=== PATIENT | female | born 1945 | race Caucasian/White ===

== ENCOUNTER → 2018-05-20 | Outpatient (CLI) | payer MEDICARE, BC ==
[~2018-05-20] MED LIST: ALLERGY EYE DRO10 ML BOTHEYES; ALUMAG30SU PO; ASCO500; Aspirin EC325 MG PO; CHOL10002 PO; DEXL60CA3 PO; Daily Multiple1 EACH PO; EZET10 PO; FLAX; IRBE150; LAVAP17G PO; LEVSOD75 PO; LOSA50 PO; LOSARTAN POTASS50 MG PO; METO50 PO; Metoprolol Tart50 MG PO; Norco 5-325 Ta1 EACH PO; PSYL5.85P PO; Pepcid20 MG PO; SUCR1 PO; TURMERIC500 MG; TURMERIC500 MG PO; Toprol Xl50 MG PO; VITAMIN B-122000 MCG; Zofran Odt4 MG SL
== END | disposition home or self-care (01) ==
LOC: LAB EV 16:16 → LAB SHORT 16:16
DX: S50.311A Abrasion of right elbow, initial encounter (principal)
CPT/HCPCS: 87070; 87205

== ENCOUNTER → 2019-01-16 | Outpatient (CLI) | payer MEDICARE, BC | END | disposition home or self-care (01) | LOC: PLD 08:49 → LAB SHORT 08:49 | DX: D48.5 Neoplasm of uncertain behavior of skin (principal) | CPT/HCPCS: 88305 ==

== ENCOUNTER 2021-05-09 21:01 | Emergency (ER) | payer MEDICARE, BC ==
[~2021-05-09] VITALS: Ht 160 cm; Wt 81.7 kg
[2021-05-10] MEDS ORDERED: ERYT.5TO LEFTEYE (01:35)
== END 2021-05-10 02:17 | disposition home or self-care (01) ==
LOC: ER 21:01
DX: S05.02XA Injury of conjunctiva and corneal abrasion without foreign body, left eye, initial encounter (principal); I10 Essential (primary) hypertension; Z79.82 Long term (current) use of aspirin; Z79.899 Other long term (current) drug therapy; Z88.8 Allergy status to other drugs, medicaments and biological substances; Z91.09 Other allergy status, other than to drugs and biological substances; Z87.891 Personal history of nicotine dependence; X58.XXXA Exposure to other specified factors, initial encounter
CPT/HCPCS: 99283; A9270

== ENCOUNTER → 2022-04-09 | Outpatient (CLI) | payer MEDICARE, BC ==
[~2022-04-09] MED LIST changes: +ERYT.5TO LEFTEYE
[2022-04-09 13:54] LABS: Source, Urine Clean Catch
[2022-04-09 18:10] LABS: White Blood Cells, Urine TNTC /hpf (0-5)
[2022-04-09 18:11] LABS: Bacteria Many /hpf; Squamous Epithelial Cells Few /hpf (Few)
== END | disposition home or self-care (01) ==
LOC: LAB SHORT 11:30 → LAB 11:30 → LAB FUT 04-08 15:20 → EDSTATUS 04-08 15:20
PROVIDERS: Urology
DX: N39.0 Urinary tract infection, site not specified (principal)
CPT/HCPCS: 81015; 87077; 87086; 87186

== ENCOUNTER 2022-05-19 09:47 | Day surgery (SDC) | payer MEDICARE, BC ==
[~2022-05-19] VITALS: Ht 160 cm; Wt 84.0 kg
[2022-05-19] MEDS ORDERED: AMLO5 PO (10:21)
[2022-05-19] MEDS ORDERED: JARDIANCE10 MG PO (10:22)
[2022-05-19] MEDS ORDERED: ESOM20 PO (10:22)
[2022-05-19] MEDS ORDERED: Estrace Vagin42.5 GM PV (10:24)
[2022-05-19] MEDS ORDERED: GLIM4 PO (10:25)
[2022-05-19] MEDS ORDERED: REPATHA SY140 MG/1 M SQ (10:25)
[2022-05-19] MEDS ORDERED: LOSA50 PO (10:26)
[2022-05-19] MEDS ORDERED: LORA10ER PO (10:26)
[2022-05-19] MEDS ORDERED: METF500 PO (10:27)
[2022-05-19] MEDS ORDERED: CLOP75 PO (15:18)
--- NOTE | 2022-05-19 16:52 | NUR ---
UP WALKING AROUND R GROIN SITE REMAINS STABLE. L PT SITE STABLE. DISCHARGE REVIEWED WITH PT, VERBALIZES UNDERSTANDING. SALINE LOCK REMOVED WITH CATHETER INTACT. PT TO PRIVATE VEHICLE PER W/C WITH ONE STAFF.
== END 2022-05-19 16:50 | disposition home or self-care (01) ==
LOC: MHTC 09:47
DX: E11.51 Type 2 diabetes mellitus with diabetic peripheral angiopathy without gangrene (principal); I10 Essential (primary) hypertension; E78.5 Hyperlipidemia, unspecified; Z79.84 Long term (current) use of oral hypoglycemic drugs; Z85.820 Personal history of malignant melanoma of skin; Z87.891 Personal history of nicotine dependence; Z88.8 Allergy status to other drugs, medicaments and biological substances
CPT/HCPCS: 37227; 75625; 75716; 75774; 76937; 85347; 99152; 99153; A9270; C1714; C1725; C1760; C1769; C1874; C1887; C1894; C2623; J1644; J2250; J3010; J7030; J7040; Q9967

== ENCOUNTER 2024-12-21 01:33 | Day surgery (SDC) | payer MEDICARE, BC ==
[~2024-12-21 01:33] MED LIST changes: +AMLO5 PO; +AMLODIPINE BESYL5 MG PO; +ASPI81CH PO; +ATOR80 PO; +CLOP75 PO; +ESOM20 PO; +EUTHYROX100 MC1 PO; +Estrace Vagin42.5 GM PV; +GLIM4 PO; +JARDIANCE10 MG PO; +JARDIANCE25 MG PO; +LORA10ER PO; +METF500 PO; +METFORMIN HCL500 M3 PO; +METO50ER PO; +METOPROL SUC; +NEXLETOL180 MG PO; +NITR.4SL SL; +PANT20 PO; +REPATHA SY140 MG/1 M SQ; +TRULICITY3 MG/0.5 M SC; +XARELTO2.5 M1 PO; +XARELTO20 MG PO
[2024-12-21] MEDS ORDERED: INCLISIRAN SODIUM 284 MG/1.5 ML SYRINGE SC SCH (06:00)
[2024-12-21 14:08] VITALS: BP 138/79
== END 2024-12-21 14:40 | disposition home or self-care (01) ==
LOC: ATC 01:33
DX: E78.5 Hyperlipidemia, unspecified (principal); I25.10 Atherosclerotic heart disease of native coronary artery without angina pectoris; K21.9 Gastro-esophageal reflux disease without esophagitis; E11.51 Type 2 diabetes mellitus with diabetic peripheral angiopathy without gangrene; I10 Essential (primary) hypertension; Z80.0 Family history of malignant neoplasm of digestive organs; Z79.899 Other long term (current) drug therapy; Z79.84 Long term (current) use of oral hypoglycemic drugs; Z79.82 Long term (current) use of aspirin
CPT/HCPCS: J1306

== ENCOUNTER 2025-03-20 02:34 | Day surgery (SDC) | payer MEDICARE, BC ==
[2025-03-20] MEDS ORDERED: INCLISIRAN SODIUM 284 MG/1.5 ML SYRINGE SC SCH (06:00)
== END 2025-03-20 14:20 | disposition home or self-care (01) ==
LOC: ATC 02:34
DX: E78.5 Hyperlipidemia, unspecified (principal); I25.10 Atherosclerotic heart disease of native coronary artery without angina pectoris; E11.51 Type 2 diabetes mellitus with diabetic peripheral angiopathy without gangrene; I25.2 Old myocardial infarction; K21.9 Gastro-esophageal reflux disease without esophagitis; I12.9 Hypertensive chronic kidney disease with stage 1 through stage 4 chronic kidney disease, or unspecified chronic kidney disease; E11.22 Type 2 diabetes mellitus with diabetic chronic kidney disease; N18.31 Chronic kidney disease, stage 3a; E03.9 Hypothyroidism, unspecified; Z86.73 Personal history of transient ischemic attack (TIA), and cerebral infarction without residual deficits; Z79.01 Long term (current) use of anticoagulants; Z79.02 Long term (current) use of antithrombotics/antiplatelets; Z79.82 Long term (current) use of aspirin; Z79.84 Long term (current) use of oral hypoglycemic drugs; Z79.85 Long-term (current) use of injectable non-insulin antidiabetic drugs; Z79.890 Hormone replacement therapy; Z79.899 Other long term (current) drug therapy; Z88.5 Allergy status to narcotic agent; Z88.8 Allergy status to other drugs, medicaments and biological substances; Z95.5 Presence of coronary angioplasty implant and graft
CPT/HCPCS: 96372; J1306

== ENCOUNTER 2025-09-20 02:30 | Day surgery (SDC) | payer MEDICARE, BC ==
[2025-09-20] MEDS ORDERED: INCLISIRAN SODIUM 284 MG/1.5 ML SYRINGE SC SCH (06:00)
== END 2025-09-20 14:20 | disposition home or self-care (01) ==
LOC: ATC 02:30
DX: E78.5 Hyperlipidemia, unspecified (principal); E11.9 Type 2 diabetes mellitus without complications; K21.9 Gastro-esophageal reflux disease without esophagitis
CPT/HCPCS: 96372; J1306